=== PATIENT | male | born 1970 | race African-American/Black ===

== ENCOUNTER 2017-09-26 12:26 | Emergency (ER) | payer MEDICARE, MEDICAID ==
[~2017-09-26] VITALS: Ht 170.2 cm; Wt 98.0 kg
[~2017-09-26 12:26] MED LIST: ATROPINE SULFATE 1MG/10ML SYR ONE; DEXTROSE 50% WATER 50ML SYRINGE IV ONE; DOPAMINE 400MG IN DEXT 5% 250ML PREMIX IV ONE; EPINEPHRINE 0.1MG/ML (1:10,000) 10ML SYR ONE; SODIUM BICARBONATE 7.5% 0.9 MEQ/ML 50ML SYR IV ONE
[2017-09-26] MEDS ORDERED: DEXTROSE 50% WATER 50ML SYRINGE IV ONE ×2 (12:59→15:01)
[2017-09-26] MEDS ORDERED: ATROPINE SULFATE 1MG/10ML SYR ONE ×2 (13:28→13:35)
[2017-09-26 14:37] LABS: BASOPHILS % 0.1 % (0.0-2.0); HEMATOCRIT. 33.7 % (42.0-52.0); HEMOGLOBIN. 10.4 g/dL (14.0-18.0); LYMPHOCYTES % 31.9 % (20.0-50.0); MEAN CORPUSCULAR HEMOGLOBIN 30.2 pg (28.0-32.0); MEAN CORPUSCULAR VOLUME 97.8 fL (80.0-94.0); MEAN PLATELET VOLUME 10.6 fl (7.4-10.4); MONOCYTES % 3.1 % (2.0-8.0); NEUTROPHILS % 63.9 % (40.0-76.0); PLATELET 102 x1000/uL (130-400); RED BLOOD CELL COUNT 3.45 mill/uL (4.7-6.1); RED CELL DISTRIBUTION WIDTH 16.9 % (11.6-14.6)
[2017-09-26 14:38] LABS: INR 1.2; PROTHROMBIN TIME 12.3 sec (9.4-11.6)
[2017-09-26 14:46] LABS: CHLORIDE 95 mEq/L (98-107)
[2017-09-26 14:58] LABS: CARBON DIOXIDE 22 mEq/L (21-32)
[2017-09-26] MEDS ORDERED: WATER IV SCH (15:15)
[2017-09-26] MEDS ORDERED: VANCOMYCIN IV SCH (15:15)
[2017-09-26] MEDS ORDERED: DEXT 5% IV SCH (15:15)
[2017-09-26] MEDS ORDERED: PIPERACILLIN SODIUM/TAZOBACTAM 4.5 G in DEXT 5% WATER 100 ML IV SCH (15:15)
[2017-09-26] MEDS ORDERED: SODIUM CHLORIDE 0.9% 1,000 ML IV ONE (15:15)
[2017-09-26] MEDS ORDERED: NOREPINEPHRINE 4 MG in DEXT 5% WATER 246 ML IV ONE ×2 (15:15→15:30)
[2017-09-26 15:44] LABS: BG BASE EXCESS -12.1 mmol/L (-2.0-2.0); BG FRACTION INSPIRED OXYGEN 100; BG HCO3 ACT 16.4 mmol/L (22.0-26.0); BG PH 7.161 (7.350-7.450); BG PO2 50.8 mmHg (75.0-100.0); BG SAMPLE SITE RIGHT BRACHIAL; BG TIDAL VOLUME(mL) 600 mL; BG VENT MODE VENT - A/C; BG VENT RATE 20 set
[2017-09-26] MEDS ORDERED: PIPERACILLIN/TAZOBACTAM 3.375GM/50ML PREMIX IV ONE (16:00)
[2017-09-26] MEDS ORDERED: PIPERACILLIN/TAZ 3.375G PREMIX 50 ML IV NR (16:00)
[2017-09-26] MEDS ORDERED: DOPAMINE 400MG PREMIX 250 ML IV ONE ×2 (17:40→17:45)
[2017-09-26] MEDS ORDERED: EPINEPHRINE 0.1MG/ML (1:10,000) 10ML SYR ONE ×2 (17:48→19:01)
[2017-09-26] MEDS ORDERED: NOREPINEPHRINE 4 MG in DEXT 5% WATER 246 ML IV NR (18:30)
[2017-09-26] MEDS ORDERED: PHENYLEPHRINE 20 MG in DEXT 5% WATER 248 ML IV STA ×2 (18:38→18:46)
[2017-09-26 18:41] VITALS: BP 41/20
[2017-09-26] MEDS ORDERED: IOHEXOL-350 100 ML BOTTLE ONE (19:48)
== END 2017-09-26 22:33 | disposition expired ==
LOC: ER 12:32 → EDBEDREQSVC 15:25 → CANRESERV 15:34 → ENRESERV 15:34 → EDBEDREQ 16:44 → CANBEDREQ 19:09 → ER 22:33
DX: A41.9 Sepsis, unspecified organism (principal); N18.6 End stage renal disease; E16.2 Hypoglycemia, unspecified; Z99.2 Dependence on renal dialysis
CPT/HCPCS: 31500; 36415; 36556; 36600; 36680; 70450; 71010; 80053; 82805; 82962; 83605; 85025; 85610; 87040; 87077; 92950; 93005; 96361; 96365; 96366; 96368; 96375; 96376; 99291; J0171; J0461; J1265; J2370; J2543; J3370; J3490; 94002; 96367; 96374; J7030; J7060; Q9967; A4315